=== PATIENT | female | born 1990 | race Hispanic/Latino ===

== ENCOUNTER 2025-03-09 15:07 | Inpatient (IN) | payer MEDICAID, SELFPAY ==
[2025-03-09] VITALS (92 sets, daily range): BP systolic 106–173; BP diastolic 55–85; PULSE 48–85; RESP 16; TEMP 36.4–37.5; O2SAT 81–100; BMI 34.0
--- NOTE | 2025-03-09 12:35 | OB.TRI.NOTE ---
HPI - General HPI Narrative CARLOS BANGURA, is a 34 F who presents from office for elevated blood pressure, headache, swelling and itching on hands and feet.
[2025-03-09] MEDS: LACTATED RINGERS 500 ML 999 ML IV (13:15)
[2025-03-09 13:25] LABS: Hematocrit 34.8 % (37-47); Hemoglobin 11.0 g/dL (12.0-15.0); Mean Corp Hgb Conc 31.6 g/dL (32-36); Mean Corpuscular Volume 79.8 fL (81-99); POSITIVE MORPHOLOGY YES; Platelet Count 120 K/mm3 (150-450); RBC Distribution Width CV 21.4 % (11.6-14.6); RBC Distribution Width SD 61.8 fl (35.1-43.9); Red Blood Count 4.36 M/mm3 (4.2-5.4); White Blood Count 4.7 K/mm3 (4.4-11.0)
[2025-03-09 13:26] LABS: Scan Indicated on CBC? Y/N YES- FLAGS NOTED
[2025-03-09 13:43] LABS: Differential Comment SCANNED
[2025-03-09 13:50] LABS: AST(SGOT) 32 U/L (<=31); Alanine Aminotransfer ALT/SGPT 19 U/L (<=34); Estimated Creatinine Clearance 126.86 ml/min (50-250); Uric Acid 5.7 mg/dL (2.6-6.0)
[2025-03-09 13:51] LABS: Creatinine, Urine (random) 51.40 mg/dL (28.00-217.00); Protein, Urine (Random) 39.8 mg/dL (0.0-12.0); Protein:Creat Ratio 774 mg/g CRE (0-200)
[2025-03-09] MEDS: Lactated Ringers 1,000 ML 100 ML IV (14:56)
[2025-03-09] MEDS: NIFEdipine 30 MG Tablet PO (15:21)
[2025-03-09 16:18] LABS: Syphilis Antibodies Nonreactive (Nonreactive)
--- NOTE | 2025-03-09 16:30 | NURSING ---
Interpretor ID [id number]
--- NOTE | 2025-03-09 18:13 | HP.PCM.OB_ITS ---
HPI - General General Date of Admission: 03/09/25 Date of Service: 03/09/25 Chief Complaint: HEADACHE HPI Narrative CARLOS LYNN, is a 34 F who presents from the office with complaining of generalized pruritus and a headache. She reports it was 7 out of 10. However after Tylenol and rest here she states that it is a 2 out of 10. She denies any gross vaginal bleeding or leaking of fluid. She has had good movement. is complicated to date by dichorionic diamniotic . Patient has a history of 1 previous full-term vaginal delivery without complication of a that was approximately 3.5 kg has also been complicated 8 by anemia she had an elevated 1 hour glucose tolerance test but had a normal 3-hour test. Maternal Data Information Final CRISTOPHER: [birth year] Gestational age: 35 3/7 [facility] Medical History (Updated 03/09/25 @ 18:[address] Analy Stark MD) Headache Pre-eclampsia Allergy/AdvReac Type Severity Reaction Status Date / Time No Known Allergies Allergy Verified 03/09/25 12:55 Social History Smoking Status: Never smoker History Elective abortions Hx Para 1 Spontaneous abortions Hx # Term Pregnancies Ectopic pregnancies Hx # Pregnancies Multiple births # of living children ROS Constitutional Constitutional: Denies fatigue, fever(s) or malaise ENT HEENT: Denies dizziness Cardiovascular Cardiovascular: Denies chest pain, dyspnea or lightheadedness Respiratory/Chest Respiratory/Chest: Denies cough or dyspnea Gastrointestinal Gastrointestinal: Denies change in bowel habits Genitourinary Genitourinary: Denies burning urination or genital lesions Integumentary Integumentary: Denies rash Neurologic Neurologic: Denies confusion, dizziness, headache(s), numbness or weakness Vital Signs Vital Signs Vital Signs: 03/09/25 12:49 03/09/25 12:49 03/09/25 12:50 Temperature Temperature Source Pulse Rate 56 L 51 L Respiratory Rate Blood Pressure 146/80 H BP Systolic 146 BP Diastolic 80 Pulse Ox 03/09/25 12:50 03/09/25 12:55 03/09/25 12:55 Temperature Temperature Source Pulse Rate 56 L Respiratory Rate Blood Pressure BP Systolic BP Diastolic Pulse Ox 100 100 03/09/25 13:00 03/09/25 13:00 03/09/25 13:05 Temperature Temperature Source Pulse Rate 55 L Respiratory Rate Blood Pressure 150/80 H BP Systolic 150 BP Diastolic 80 Pulse Ox 99 03/09/25 13:05 03/09/25 13:05 03/09/25 13:05 Temperature Temperature Source Pulse Rate 56 L 56 L Respiratory Rate Blood Pressure BP Systolic BP Diastolic Pulse Ox 100 03/09/25 13:10 03/09/25 13:10 03/09/25 13:15 Temperature Temperature Source Pulse Rate 54 L 52 L Respiratory Rate Blood Pressure BP Systolic BP Diastolic Pulse Ox 100 03/09/25 13:15 03/09/25 13:20 03/09/25 13:20 Temperature Temperature Source Pulse Rate 66 Respiratory Rate Blood Pressure BP Systolic BP Diastolic Pulse Ox 100 96 03/09/25 13:25 03/09/25 13:25 03/09/25 13:30 Temperature Temperature Source Pulse Rate 55 L 55 L Respiratory Rate Blood Pressure BP Systolic BP Diastolic Pulse Ox 99 03/09/25 13:30 03/09/25 13:35 03/09/25 13:35 Temperature Temperature Source Pulse Rate 55 L Respiratory Rate Blood Pressure 160/77 H BP Systolic 160 BP Diastolic 77 Pulse Ox 99 03/09/25 13:35 03/09/25 13:35 03/09/25 13:40 Temperature Temperature Source Pulse Rate 56 L 60 Respiratory Rate Blood Pressure BP Systolic BP Diastolic Pulse Ox 99 03/09/25 13:40 03/09/25 13:45 03/09/25 13:45 Temperature Temperature Source Pulse Rate 57 L Respiratory Rate Blood Pressure BP Systolic BP Diastolic Pulse Ox 100 100 03/09/25 13:50 03/09/25 13:50 03/09/25 13:50 Temperature Temperature Source Pulse Rate 56 L Respiratory Rate Blood Pressure 152/76 H BP Systolic 152 BP Diastolic 76 Pulse Ox 100 03/09/25 13:55 03/09/25 13:55 03/09/25 14:00 Temperature Temperature Source Pulse Rate 55 L 55 L Respiratory Rate Blood Pressure BP Systolic BP Diastolic Pulse Ox 100 03/09/25 14:00 03/09/25 14:04 03/09/25 14:04 Temperature Temperature Source Pulse Rate 54 L Respiratory Rate Blood Pressure 143/82 H BP Systolic 143 BP Diastolic 82 Pulse Ox 98 03/09/25 14:05 03/09/25 14:05 03/09/25 14:10 Temperature Temperature Source Pulse Rate 55 L 53 L Respiratory Rate Blood Pressure BP Systolic BP Diastolic Pulse Ox 100 03/09/25 14:10 03/09/25 14:15 03/09/25 14:15 Temperature Temperature Source Pulse Rate 50 L Respiratory Rate Blood Pressure BP Systolic BP Diastolic Pulse Ox 100 100 03/09/25 14:20 03/09/25 14:20 03/09/25 14:20 Temperature Temperature Source Pulse Rate 56 L Respiratory Rate Blood Pressure 160/79 H BP Systolic 160 BP Diastolic 79 Pulse Ox 100 03/09/25 14:25 03/09/25 14:25 03/09/25 14:30 Temperature Temperature Source Pulse Rate 55 L 54 L Respiratory Rate Blood Pressure BP Systolic BP Diastolic Pulse Ox 100 03/09/25 14:30 03/09/25 14:35 03/09/25 14:35 Temperature Temperature Source Pulse Rate 55 L Respiratory Rate Blood Pressure BP Systolic BP Diastolic Pulse Ox 99 97 03/09/25 14:36 03/09/25 14:36 03/09/25 14:40 Temperature Temperature Source Pulse Rate 53 L 55 L Respiratory Rate Blood Pressure 160/77 H BP Systolic 160 BP Diastolic 77 Pulse Ox 03/09/25 14:40 03/09/25 14:42 03/09/25 15:05 Temperature Temperature Source Pulse Rate Respiratory Rate Blood Pressure 162/77 H BP Systolic 162 BP Diastolic 77 Pulse Ox 100 81 03/09/25 15:05 03/09/25 15:20 03/09/25 15:20 Temperature Temperature Source Pulse Rate 48 L 55 L Respiratory Rate Blood Pressure 173/85 H BP Systolic 173 BP Diastolic 85 Pulse Ox 03/09/25 15:35 03/09/25 15:35 03/09/25 15:46 Temperature Temperature Source Pulse Rate 54 L Respiratory Rate Blood Pressure 172/85 H 106/55 L BP Systolic 172 106 BP Diastolic 85 55 Pulse Ox 03/09/25 15:46 03/09/25 16:07 03/09/25 16:07 Temperature Temperature Source Pulse Rate 85 71 Respiratory Rate Blood Pressure 114/80 BP Systolic 114 BP Diastolic 80 Pulse Ox 03/09/25 16:26 03/09/25 16:26 03/09/25 16:46 Temperature Temperature Source Pulse Rate 66 Respiratory Rate Blood Pressure 129/76 H 129/74 H BP Systolic 129 129 BP Diastolic 76 74 Pulse Ox 03/09/25 16:46 03/09/25 17:06 03/09/25 17:06 Temperature Temperature Source Pulse Rate 63 59 L Respiratory Rate Blood Pressure 140/76 H BP Systolic 140 BP Diastolic 76 Pulse Ox 03/09/25 17:27 03/09/25 17:27 03/09/25 17:46 Temperature Temperature Source Pulse Rate 63 Respiratory Rate Blood Pressure 157/78 H 151/79 H BP Systolic 157 151 BP Diastolic 78 79 Pulse Ox 03/09/25 17:46 03/09/25 18:06 03/09/25 18:06 Temperature Temperature Source Pulse Rate 56 L 62 Respiratory Rate Blood Pressure 132/66 H BP Systolic 132 BP Diastolic 66 Pulse Ox 03/09/25 18:10 03/09/25 18:10 03/09/25 18:10 Temperature 99.1 F Temperature Source Temporal Pulse Rate Respiratory Rate 16 Blood Pressure BP Systolic BP Diastolic Pulse Ox Weight Weight: 76.4 kg Body Mass Index (BMI) 34.0 Physical Exam Narrative 2+ LE EDEMA, 2+ DTRS, NO CLONUS CERVIX Const alert and no apparent distress General Appearance: cooperative HEENT normocephalic Resp normal respiratory effort Cardio regular rate GI soft to palpation GI Narrative: gravid, nontender, appropriate for gestational age Extremity no calf tenderness Skin no wounds Rashes: No rashes noted Psych activity/motor behavior normal Labs Labs Labs: Blood Type B POSITIVE Antibody Screen NEGATIVE Hct 34.8 % (37-47) L Hgb 11.0 g/dL (12.0-15.0) L Syphilis Total Ab Nonreactive (Nonreactive) Miscellaneous Test Pending Assessment & Plan (1) High risk multigravida in third trimester: (2) 35 weeks gestation of : PLAN: Special care nursery and pediatrics were made aware of patient's admission and plan for delivery. (3) Dichorionic diamniotic twin gestation: PLAN: vtx/transverse response and alternatives to induction of labor versus section were discussed with the patient her questions were answered to her satisfaction she desires to proceed with induction of labor. Encouraged epidural. Estimated weight is less than her previous delivery and pelvis clinically adequate to expect vaginal delivery. Will initiate Pitocin and use artificial rupture membranes as needed for induction of labor. May use routine pain control measures as needed for labor. Encouraged epidural. (4) Pre-eclampsia: PLAN: Patient had 1 severe range pressure, the other pressure was immediately after the antihypertensives were given. Blood pressure responded well to p.o. Procardia. Will continue to monitor blood pressures closely and medicate as needed. Headache has now improved. Will hold magnesium for now but if headache worsens or another severe range pressure would initiate magnesium prophylaxis and I reviewed risk benefits and alternatives of this with the patient. Her questions were answered to her satisfaction and she desires to proceed. Patient used her friend's an accounts receivable executive and declined interpreting services for now. Recheck preeclampsia labs 12 hrs after admission, plt 120 and uncertain if gest Htn or from preeclampsia.
[2025-03-09] MEDS: Oxytocin 15 Units/NS 250ml 15 UNITS/250 ML IV.SOLN 2 UNITS IV (19:17)
[2025-03-09] MEDS: Magnesium Sulfate 4gm/100mL 4 GM/100 ML IV.SOLN. IV (20:43)
--- NOTE | 2025-03-09 20:57 | PCM.PN.CNM ---
Subjective Subjective Contacted by nursing due to patient reporting that her headache has returned. She is also having blurry areas in vision. Objective Data Objective Data Vital Signs: Vital Signs Temp Pulse Resp BP Pulse Ox 98.3 F 67 16 143/80 H 97 03/09/25 19:36 03/09/25 20:49 03/09/25 19:36 03/09/25 20:43 03/09/25 20:49 Weight: 168 lb 6.931 oz Body Mass Index (BMI) 34.0 Intake & Output: Intake and Output for Last 24 Hours 03/07/25 03/08/25 03/09/25 23:59 23:59 23:59 Intake Total 671.40 / 671.40 Balance 671.40 / 671.40 Lab / Micro Data 03/09/25 12:15 03/09/25 12:15 Labs: Laboratory Results - last 24 hr 03/09/25 12:15: WBC 4.7, RBC 4.36, Hgb 11.0 L, Hct 34.8 L, MCV 79.8 L, MCH 25.2 L, MCHC 31.6 L, RDW Std Deviation 61.8 H, RDW Coeff of Rosalind 21.4 H, Plt Count 120 L, MPV TNP, Differential Comment SCANNED, Creatinine 0.56 L, Estim Creat Clear Calc 126.86, Est GFR (MDRD) Non-Af 121, Uric Acid 5.7, AST 32, ALT 19, U Random Total Protein 39.8 H, Urine Creatinine 51.40, Protein/Creatinin Ratio 774 H 03/09/25 13:15: Syphilis Total Ab Nonreactive, Blood Type B POSITIVE, Antibody Screen NEGATIVE Assessment & Plan (1) Pre-eclampsia: (2) Dichorionic diamniotic twin gestation: (3) 35 weeks gestation of : (4) High risk multigravida in third trimester: (5) Headache: (6) Visual changes: (7) Thrombocytopenia: PLAN: Plan Dr. Stark notified of headache with visual changes Orders received to start magnesium sulfate IV - 4 gm bolus now and to run at 2 gm / hour Continue to monitor blood pressures - no severe ranges Repeating platelet level at 2300 Continue Pitocin 4 mu/min IV and continue to increase per policy
[2025-03-09] MEDS: Magnesium Sulfate 20 GM/500 ML BAG IV (21:06)
[2025-03-09 23:22] LABS: Hematocrit 35.6 % (37-47); Hemoglobin 11.3 g/dL (12.0-15.0); Mean Corp Hgb Conc 31.7 g/dL (32-36); Mean Corpuscular Volume 79.8 fL (81-99); POSITIVE MORPHOLOGY YES; Platelet Count 121 K/mm3 (150-450); RBC Distribution Width CV 21.4 % (11.6-14.6); RBC Distribution Width SD 60.8 fl (35.1-43.9); Red Blood Count 4.46 M/mm3 (4.2-5.4); White Blood Count 5.8 K/mm3 (4.4-11.0)
[2025-03-09 23:48] LABS: Scan Indicated on CBC? Y/N YES- FLAGS NOTED
[2025-03-10] VITALS (176 sets, daily range): BP systolic 102–156; BP diastolic 63–92; PULSE 62–97; RESP 14–16; TEMP 36.1–37; O2SAT 86–100
[2025-03-10] MEDS: LACTATED RINGERS 500 ML 999 ML IV (01:08)
[2025-03-10] MEDS: fentaNYL-bupivacaine (epidural) 100 ML BAG EPIDURAL ×2 (02:07→10:39)
--- NOTE | 2025-03-10 03:22 | NURSING ---
Gil placed after epidural, pt is having twins and baby B is transverse.
[2025-03-10] MEDS: Lactated Ringers 1,000 ML 100 ML IV (05:00)
[2025-03-10] MEDS: Magnesium Sulfate 20 GM/500 ML BAG IV ×2 (06:11→16:11)
[2025-03-10] MEDS: 0.9% Saline Lock 10 ML Syringe IV ×3 (07:54→14:35)
[2025-03-10 08:33] LABS: Hematocrit 40.5 % (37-47); Hemoglobin 12.9 g/dL (12.0-15.0); Mean Corp Hgb Conc 31.9 g/dL (32-36); Mean Corpuscular Volume 79.7 fL (81-99); POSITIVE MORPHOLOGY YES; Platelet Count 125 K/mm3 (150-450); RBC Distribution Width CV 21.5 % (11.6-14.6); RBC Distribution Width SD 61.3 fl (35.1-43.9); Red Blood Count 5.08 M/mm3 (4.2-5.4); White Blood Count 7.2 K/mm3 (4.4-11.0)
[2025-03-10 08:57] LABS: AST(SGOT) 34 U/L (<=31); Alanine Aminotransfer ALT/SGPT 23 U/L (<=34); Albumin, Serum 3.1 g/dL (3.5-5.0); Alkaline Phosphatase 387 U/L (35-104); Anion Gap 15 (5-15); BUN 9 mg/dL (4-19); BUN/Creat Ratio 13.2 RATIO (10-20); Calcium,Total 8.0 mg/dL (7.6-11.0); Carbon Dioxide 17.7 mmol/L (21.0-32.0); Chloride 103 mmol/L (98-108); Estimated Creatinine Clearance 107.64 ml/min (50-250); Globulin 3.0 g/dL (2.2-4.2); Glucose 91 mg/dL (70-99); Potassium 3.8 mmol/L (3.3-5.1)
[2025-03-10 09:07] LABS: Prothrombin Time (Protime)PT. 12.4 SECONDS (11.7-14.9)
[2025-03-10 09:08] LABS: Partial Thromboplast Time 28.7 Seconds (24.1-36.2)
[2025-03-10 09:33] LABS: Scan Indicated on CBC? Y/N YES- FLAGS NOTED
[2025-03-10 09:34] LABS: Fibrinogen 475 mg/dl (203-444)
[2025-03-10] MEDS: Oxytocin 15 Units/NS 250ml 15 UNITS/250 ML IV.SOLN 334 UNITS IV (12:29)
[2025-03-10] MEDS: TRANEXAMIC ACID 1,000 MG in 0.9% Normal Saline (100mL Bag) 100 ML 440 MG IV (12:30)
[2025-03-10] MEDS: Oxytocin 15 Units/NS 250ml 15 UNITS/250 ML IV.SOLN 83 UNITS IV (13:05)
--- NOTE | 2025-03-10 13:13 | EX.PCM.OBVAG ---
Assessment & Plan (1) Dichorionic diamniotic twin gestation: (2) 35 weeks gestation of : (3) High risk multigravida in third trimester: (4) Pre-eclampsia: (5) Headache: (6) Visual changes: (7) Thrombocytopenia: Vaginal Delivery Maternal Presentation Maternal Presentation: Medically Indicated Induction Medical Reason for Induction: Preeclampsia, eclampsia Vaginal Delivery Information Procedure Performed: Spontaneous Vaginal Delivery Surgeon/Practitioner: Madeleine Medley Date of Procedure: 03/10/25 Pre-Procedure Diagnosis: 35 week gestation, twin gestation, pre eclampsia Post-Procedure Diagnosis: As above Type of anesthesia: Epidural Special Medications: None Estimated Blood Loss: 900 mL Findings Description of procedure: The patient was taken to the operating room when she was complete and +1 station. With pushing, head of baby A was delivered followed by the shoulders and body without any traction, force, or delay. A vigorous viable male infant was delivered and placed on maternal abdomen. The cord was clamped and cut after a 60 sec delay by the father the baby. Next a hand was inserted into the vagina to palpate a presenting part of baby B. One foot, one hand and the side of the head was palpated. Baby B was transverse back up. The hand reduced spontaneously. Was unable to reduce the foot to be able to perform an external cephalic version to bring the head into the pelvis, as the foot was passed the head and in the upper half of the vagina. Upon palpation I was unable to feel the second foot. Dr. Wolf then attempted to find the second foot, and was unable to do so. Dr. Stark then presented to the operating room and upon palpation was able to find the second foot and ruptured the patient upon doing so for clear fluid. The infant was delivered in footling breech presentation. The legs, buttocks, and body were delivered. With rotation the arms were delivered. The head was delivered with suprapubic pressure and was flexed during delivery. A viable male infant was delivered and the cord was clamped cut immediately and the infant was handed off to the waiting nursery staff. Baby A was delivered by Dr. Medley. Baby B was delivered by Dr. Stark. At this point myself performed fundal massage and the placentas were delivered spontaneously and noted to be intact. There was a true knot in the cord of baby A. The uterus was explored and cleared of clot and was noted to be boggy. Pitocin was running. Hemabate was given. Fundal massage was performed, and the uterus continued to be boggy. TXA was given and a Dana was placed intrauterine. The Dana was placed to suction, and bleeding improved. There was an anterior vaginal laceration that was briskly bleeding which was repaired using a 2-0 Vicryl using 3 [id number] stitches. A second-degree perineal laceration was repaired using 2-0 Vicryl and 3-0 Vicryl in usual fashion. A bedside transabdominal ultrasound was performed confirming intrauterine placement of the Lindsey. Bleeding was minimal. Procedure findings: Baby A vertex with true knot in cord Baby B footling breech Normal placentas Presentation: Vertex Amniotic Membrane Rupture Type: Artificial Amniotic Fluid Description: Clear Placental Delivery Description: Spontaneous Cord Entanglement: True Knot(s) Nuchal Cord Compression: Without compression Cord Gases: ABG and VBG Infant A Gender: Male Delayed Cord Clamping: Yes Silvering Department Supervisor vice president and portfolio manager: Yes Stripping And Booking Machine Operator: Hailey Lainez Tasks completed by corporate legal assistant: Other (ultrasound, vaginal exam) Additional bookkeeper assistant?: Yes Additional Lymphedema Therapist #2: Analy Stark Tasks completed by bookkeeper assistant #2: Other (delivery of baby B) Post Vaginal Deli Medications given after delivery: IV Pitocin and IM Hemabate Episiotomy Description: None Laceration: 2nd degree Complication Complications: No Baby B Information Presentation: Footling Breech Operative Information Mode of Delivery: Vaginal Cord Entanglement: None Cord Gases: ABG and VBG Infant B gender: Male Delayed Cord Clamping: No
--- NOTE | 2025-03-10 13:47 | NURSING ---
60CC STERILE FLUID REMOVED FROM FIFI AND SUCTION DISCONNECTED AT THIS TIME PER POLICY TO OBSERVE BLEEDING FOR 30MIN.
[2025-03-10 15:29] LABS: Hematocrit 31.5 % (37-47); Hemoglobin 10.1 g/dL (12.0-15.0); Mean Corp Hgb Conc 32.1 g/dL (32-36); Mean Corpuscular Volume 79.7 fL (81-99); POSITIVE MORPHOLOGY YES; Platelet Count 145 K/mm3 (150-450); RBC Distribution Width CV 21.2 % (11.6-14.6); RBC Distribution Width SD 60.8 fl (35.1-43.9); Red Blood Count 3.95 M/mm3 (4.2-5.4); White Blood Count 15.7 K/mm3 (4.4-11.0)
--- NOTE | 2025-03-10 16:15 | NURSING ---
Epidural catheter removed at this time per policy with blue tip intant. FIFI also removed per Dr Medley request without difficulty. Patient tolerated removal without complaint of discomfort. Bleeding appropriate fundal height at level of umbilicus, midline, firm.
[2025-03-10 19:09] LABS: Hematocrit 24.9 % (37-47); Hemoglobin 8.1 g/dL (12.0-15.0); Immature Granulocytes Count 0.110 X10^3/uL (0.0-0.0); Mean Corp Hgb Conc 32.5 g/dL (32-36); Mean Corpuscular Volume 79.8 fL (81-99); NRBC Flagged by Analyzer 0 % (0-5); POSITIVE MORPHOLOGY YES; Platelet Count 125 K/mm3 (150-450); RBC Distribution Width CV 21.2 % (11.6-14.6); RBC Distribution Width SD 60.2 fl (35.1-43.9); Red Blood Count 3.12 M/mm3 (4.2-5.4); White Blood Count 15.4 K/mm3 (4.4-11.0)
[2025-03-10 19:47] LABS: Differential Indicated SCAN CRITERIA MET
[2025-03-10 20:33] LABS: Scan Indicated on CBC? Y/N YES- FLAGS NOTED
[2025-03-10] MEDS: Lactated Ringers 1,000 ML 30 ML IV (20:50)
--- NOTE | 2025-03-10 21:39 | NURSING ---
Due to PRBC transfusion, Vitals documented for this hour under TAR
[2025-03-10 21:48] LABS: Differential Comment SCANNED
[2025-03-10 21:51] LABS: Anisocytosis 2+; Burr Cells 1+; Polychromasia 1+
[2025-03-11] VITALS (13 sets, daily range): BP systolic 112–131; BP diastolic 70–86; PULSE 75–85; RESP 16–18; TEMP 36.2–36.9; O2SAT 95–100
--- NOTE | 2025-03-11 00:01 | NURSING ---
vitals still in TAR for transfusion
[2025-03-11] MEDS: Magnesium Sulfate 20 GM/500 ML BAG IV (02:31)
[2025-03-11 06:56] LABS: Hematocrit 26.0 % (37-47); Hemoglobin 8.7 g/dL (12.0-15.0); Mean Corp Hgb Conc 33.5 g/dL (32-36); Mean Corpuscular Volume 81.5 fL (81-99); POSITIVE MORPHOLOGY YES; Platelet Count 121 K/mm3 (150-450); RBC Distribution Width CV 21.7 % (11.6-14.6); RBC Distribution Width SD 63.8 fl (35.1-43.9); Red Blood Count 3.19 M/mm3 (4.2-5.4); White Blood Count 14.6 K/mm3 (4.4-11.0)
[2025-03-11 06:58] LABS: Scan Indicated on CBC? Y/N YES- FLAGS NOTED
[2025-03-11 07:20] LABS: AST(SGOT) 32 U/L (<=31); Alanine Aminotransfer ALT/SGPT 16 U/L (<=34); Albumin, Serum 2.3 g/dL (3.5-5.0); Alkaline Phosphatase 243 U/L (35-104); Anion Gap 9 (5-15); BUN 8 mg/dL (4-19); BUN/Creat Ratio 12.3 RATIO (10-20); Calcium,Total 6.8 mg/dL (7.6-11.0); Carbon Dioxide 20.0 mmol/L (21.0-32.0); Chloride 103 mmol/L (98-108); Estimated Creatinine Clearance 107.64 ml/min (50-250); Globulin 1.9 g/dL (2.2-4.2); Glucose 85 mg/dL (70-99); Potassium 4.2 mmol/L (3.3-5.1)
[2025-03-11 07:28] LABS: Differential Comment SCANNED
--- NOTE | 2025-03-11 08:41 | PCM.PROGNOTE ---
Subjective Subjective patient seen at bedside, doing well. Patient reports good pain control. lochia mild. pt does reports has some muffling of ears and headache. reports urinating w/o concerns. Objective Data Objective Data Vital Signs: Vital Signs Temp Pulse Resp BP Pulse Ox O2 Del Method 97.7 F L 83 16 128/86 H 99 Room Air 03/11/25 06:23 03/11/25 06:23 03/11/25 06:23 03/11/25 06:23 03/11/25 06:23 03/11/25 06:23 Oxygen Delivery Method Room Air Weight: 76.4 kg Body Mass Index (BMI) 34.0 Intake & Output: Intake and Output for Last 24 Hours 03/09/25 03/10/25 03/11/25 23:59 23:59 23:59 Intake Total 783.27 / 783.27 4825.17 / 4825.17 1080 / 1080 Output Total 200 / 200 3040 / 3040 530 / 530 Balance 583.27 / 583.27 1785.17 / 1785.17 550 / 550 Lab / Micro Data 03/11/25 06:29 03/11/25 06:29 Labs: Laboratory Results - last 24 hr 03/10/25 08:07: PT 12.4, INR 0.9, APTT 28.7, Fibrinogen 475 H, Sodium 136, Potassium 3.8, Chloride 103, Carbon Dioxide 17.7 L, Anion Gap 15, BUN 9, Creatinine 0.66 L, Estim Creat Clear Calc 107.64, Est GFR (MDRD) Non-Af 116, BUN/Creatinine Ratio 13.2, Glucose 91, Calcium 8.0, Total Bilirubin 0.70, AST 34 H, ALT 23, Alkaline Phosphatase 387 H, Total Protein 6.1, Albumin 3.1 L, Globulin 3.0, Albumin/Globulin Ratio 1.0 03/10/25 13:15: Crossmatch See Detail 03/10/25 14:35: WBC 15.7 H, RBC 3.95 L, Hgb 10.1 L, Hct 31.5 L, MCV 79.7 L, MCH 25.6 L, MCHC 32.1, RDW Std Deviation 60.8 H, RDW Coeff of Rosalind 21.2 H, Plt Count 145 L, MPV TNP 03/10/25 18:55: WBC 15.4 H, RBC 3.12 L, Hgb 8.1 L, Hct 24.9 L, MCV 79.8 L, MCH 26.0 L, MCHC 32.5, RDW Std Deviation 60.2 H, RDW Coeff of Rosalind 21.2 H, Plt Count 125 L, MPV TNP, Immature Gran % (Auto) 0.700, Neut % (Auto) 87.2 H, Lymph % (Auto) 6.9 L, Rhea % (Auto) 5.1, Eos % (Auto) 0.0, Baso % (Auto) 0.1, Absolute Neuts (auto) 13.4 H, Absolute Lymphs (auto) 1.06, Nucleated RBC % 0, Differential Comment SCANNED, Platelet Estimate SLT DEC, Polychromasia 1+, Anisocytosis 2+, [place] Cells 1+ 03/11/25 06:29: WBC 14.6 H, RBC 3.19 L, Hgb 8.7 L, Hct 26.0 L, MCV 81.5, MCH 27.3, MCHC 33.5, RDW Std Deviation 63.8 H, RDW Coeff of Rosalind 21.7 H, Plt Count 121 L, MPV TNP, Differential Comment SCANNED, Sodium 132 L, Potassium 4.2, Chloride 103, Carbon Dioxide 20.0 L, Anion Gap 9, BUN 8, Creatinine 0.66 L, Estim Creat Clear Calc 107.64, Est GFR (MDRD) Non-Af 116, BUN/Creatinine Ratio 12.3, Glucose 85, Calcium 6.8 L, Total Bilirubin 0.56, AST 32, ALT 16, Alkaline Phosphatase 243 H, Total Protein 4.2 L, Albumin 2.3 L, Globulin 1.9 L, Albumin/Globulin Ratio 1.2 Physical Exam Narrative Abd: fundus firm. Vaginal exam: no induration, sutures intact. No signifcant swelling no signs of hematoma Const alert and oriented x3 General Appearance: cooperative HEENT normocephalic Neck General: normal visual inspection GI soft to palpation and non-distended GI Narrative: Fundus firm Extremity normal to inspection and no calf tenderness Skin no rashes or lesions noted Neuro oriented x3 and CN's II-XII intact bilaterally Psych mental status grossly normal Assessment & Plan Assessment/Plan (1) Thrombocytopenia: (2) Headache: (3) Pre-eclampsia: (4) Dichorionic diamniotic twin gestation: (5) Vaginal delivery: (6) Acute on chronic anemia: PLAN: Plan PPD# 1 s/p 1 unit PRBC Routine care pain mgmt ambulation decrease magnesium to 1g/hr then stop around 1pm (24hr post delivery) check magnesium level (toxicity unlikely but due to symptoms will assess) Monitor VS Nexplanon insertion before discharge home
[2025-03-11 11:01] LABS: Magnesium 6.9 mg/dL (1.5-2.2)
--- NOTE | 2025-03-11 15:02 | CASEMGMT ---
Social Work Assessment Labor and Delivery Unit Patient Address: [address] [place] [address]. [place] [address] Phone number: [phone] Date of Referral: 03/09/25 Time of Referral:? 1624 Referred By: Dr. Stark Date of Intervention: ??03/11/25 Time of Intervention:? 141 Reason for Referral:? father of patient has history with alcohol Sw completed chart review and acknowledges social work consult. Sw presented to bedside and using iPad retail brand ambassador #[id number] sw introduced self to mother of baby (MOB- Deepthi) and father of baby (FOB- João). Sw explained reason for sw involvement and completed psychosocial assessment. History obtained from: medical records, MOB and FOB Household composition: Currently residing in the family home is LUZ ARGUETA, their 9 year old son, Daniel and twins when ready for discharge. MOB denies any problems or concerns with housing. Patient's parent/guardian status:? FOPercy states that he and MOB have been in a relationship with each other for 9 years. Parents state that they grew up in the same town in [place]. They moved to the [place] 1[place]5 years ago. [place] twins are second and third child for parents together. No concerns reported of domestic violence or intimate partner violence. Medical History: ?ELLIE is 34 year old female who is 2, para1- now 3 following labor and delivery of twins. ELLIE received routine care during with [facility]. ELLIE presented to hospital and delivered babys following induction of labor due to pre-eclampsia on 03/10/25 at 35 weeks gestation. Baby A: Enrique, was born vaginally and weighed 4lb 13oz with apgars of 8 and 9 at one and five minutes of life. Baby B: Rosendo, was born breech, and weighed 5lb 8oz and had apgars of 1, 6 and 8 at one, five and ten minutes of life respectfully. MOB was observed bottle feeding the twins. Kait was informed by bedside RN that parents have not chosen a pi/senior research associate for the twins, and told nurse that their son sees a doctor in [place]. While meeting with parents, sw explained the importance of the twins meeting with a pi/senior research associate regularly to ensure that they are growing and meeting developmental milestones on time, especially since they were born prematurely. Sw explained that a pi/senior research associate will monitor their growth and weight and administer vaccinations if parents are choosing to vaccinate their children. Kait informed parents of local pi/senior research associate options. Parents stated that they wanted to chose a pi/senior research associate at [facility]. Kait informed bedside RN that they want to schedule with [facility] when ready for discharge. Educational Status:? Parents obtaine their general education in [place]. Financial Status: LUZ is employed outside of the home working for [employer] in [place]. Infant Supplies:??Parents report that they have obtained all necessary baby items: two car seats, two safe sleep spaces, clothes, diapers and wipes Childcare/Caregiver(s):?MOB does not work outside of the home and will be the primary caregiver to baby's Transportation:?FOB states that they have reliable means of transportation, and that transportation is not a barrier to get anywhere they need to go. Programs/Agencies Involved: Parents met with Teresa from [employer] who will get the twins connected to Medicaid insurance. Kait explained that Medicaid will not go away for the twins and that it will cover all of their medical bills, including their pi/senior research associate appointments. Parents are not connected to any other community resources because they are not legal immigrants. - Kait provided parents information on [employer] which is a resource available to them in [place] which helps illegal immigrants with any needs that they may have. ? Children Services/Legal Issues:???No history of children services involvement. No issues or concerns warranting referral to be made at this time. Behavioral Health Issues: ??Mental Health History:?Parents deny mental health history. ?? Substance Use History:?Parents deny substance use prior to and during . ? Family History:ELLIE disclosed that there is substance abuse history with her family. Kait explained the importance of using healthy and safe coping skills opposed to seeking comfort from drugs or alcohol due to her family history. MOB expressed understanding. ? Drug Screens: ??No drug screens observed while completing chart review. Family/Social Stressors:? Parents deny any problems, concerns or stressors at this time. Support Systems: ELLIE states that her brother who lives close is a support person along with LUZ. Depression/Shaken Baby/Safe Sleeping:? Kait educated parents on signs and symptoms of baby blues and depression to be on the lookout for during this period. MOB states that she is aware of symptoms and did not experience any following her first baby. FOB states that if MOB were to experience symptoms he would recognize a change in her. Sw educated parents on shaken baby prevention and ABCs of safe sleep. Parents express understanding. ASSESSMENT:? MOB and baby's admitted following labor and delivery. Parents are paraguayan speaking but were observed to appear welcoming to meet with sw. Assessment completed and resources provided to parents. Education provided regarding Help Me [employer], [employer], and encouragement to choose a pi/senior research associate. MOB was laying in bed comfortably and FOB was standing in room taking turns feeding each baby and burping them. FOB handled each baby lovingly and provided appropriate hands on care. Parents asked appropriate questions. PLAN:? No other services requested or indicated. MOB and baby to be discharged when medically ready. Parents were provided literature regarding: signs and symptoms of baby blues and mood and anxiety disorders, Help Me Grow, shaken baby prevention, ABCs of safe sleep and a list of county resources that are available for them should any needs present themselves. [place], CONTINUOUS CONVEYOR SCREEN DRIER, SUPERVISOR [employer]
--- NOTE | 2025-03-11 16:40 | PCM.OPRPT ---
Operative Report (Standard) Operative Information Date of Procedure: 03/11/25 Pre-Operative Diagnosis: contraception management Post-Operative Diagnosis: same Surgery/Procedure Performed: Nexplanon insertion aeronautical research engineer: No Type of Anesthesia: Local Procedure Start Time: 16:50 Procedure Stop Time: 16:53 Select all DRAINS/GRAFTS/IMPLANTS that apply: Implanted device Implanted device details: Nexplanon Estimated Blood Loss: 0 Specimen collected: No Description of surgery: science interpreter service used to explain procedure and obtain consent. Left arm bent and area cleaned with betadine. 3cc of 1% lidocaine injected and Nexplanon placed about 10cm from medial epicondyle - placed superficially without difficulty. Steri strip applied. dry pressure dressing placed and patient tolerated well. excellent hemostasis Surgical Findings: nexplanon placed left arm Complications Complications: No
[2025-03-11] MEDS: 0.9% Saline Lock 10 ML Syringe IV (16:52)
[2025-03-12 02:50] VITALS: BP 116/72; PULSE 79; RESP 16; TEMP 36.8; O2SAT 98
--- NOTE | 2025-03-12 05:17 | DCINST_ITS ---
Discharge Instructions DC O2, CPAP, BIPAP needs Home O2 Discharge instructions: No Dressing / Incision May resume sexual activity in: 6-8 weeks Dressing / Incision Call your doctor if you observe: Fever of 101 or Higher, Inability to urinate, Using more than 1 pad per hour and Uncontrolled pain Follow Up Care Please Follow Up With: júnior When: You need to be seen in the office in 48-72hrs for BP check and then at 6 weeks for visit. please call [phone] Test Results: Test results from this visit will be discussed in further detail at your follow- up appointment, if applicable. Discharge Plan Admission Admit Date/Time: 03/09/25 15:07 Attending Provider: Madeleine Medley Primary Care Provider: Care PhysicianAmna Primary Discharge Orders/Prescriptions Prescriptions: New acetaminophen 500 mg Tablet 1,000 mg PO Q6H PRN PRN (Reason: Pain 1-10 Or Fever) Qty: 0 0RF ibuprofen 600 mg Tablet 600 mg PO Q6H PRN PRN (Reason: Pain Score 1-10) Qty: 0 0RF ferrous sulfate 325 mg (65 mg iron) tablet 325 mg PO DAILY Qty: 30 1RF Continued PNV cmb#95-ferrous fumarate-FA [ Multivitamins] 28 mg iron- 800 mcg tablet 1 tab PO DAILY Discontinued aspirin 81 mg capsule 81 mg PO DAILY Referrals / Follow Up: Care Physician,Amna Primary [Primary Care Provider] - Disposition Disposition (needs filled in before D/C Order can be placed): Home, Self Care
--- NOTE | 2025-03-12 05:28 | PCM.PROGNOTE ---
Subjective Subjective patient seen at bedside, doing well. Patient reports good pain control. lochia mild. denies JHAVERI or visual changes. Objective Data Objective Data Vital Signs: Vital Signs Temp Pulse Resp BP Pulse Ox O2 Del Method 98.2 F 79 16 116/72 98 Room Air 03/12/25 02:50 03/12/25 02:50 03/12/25 02:50 03/12/25 02:50 03/12/25 02:50 03/12/25 02:50 Oxygen Delivery Method Room Air Weight: 76.4 kg Body Mass Index (BMI) 34.0 Intake & Output: Intake and Output for Last 24 Hours 03/10/25 03/11/25 03/12/25 23:59 23:59 23:59 Intake Total 4825.17 / 4825.17 2481.67 / 2481.67 Output Total 3040 / 3040 1430 / 1430 Balance 1785.17 / 1785.17 1051.67 / 1051.67 Lab / Micro Data 03/11/25 06:29 03/11/25 06:29 Labs: Laboratory Results - last 24 hr 03/11/25 06:29: WBC 14.6 H, RBC 3.19 L, Hgb 8.7 L, Hct 26.0 L, MCV 81.5, MCH 27.3, MCHC 33.5, RDW Std Deviation 63.8 H, RDW Coeff of Rosalind 21.7 H, Plt Count 121 L, MPV TNP, Differential Comment SCANNED, Sodium 132 L, Potassium 4.2, Chloride 103, Carbon Dioxide 20.0 L, Anion Gap 9, BUN 8, Creatinine 0.66 L, Estim Creat Clear Calc 107.64, Est GFR (MDRD) Non-Af 116, BUN/Creatinine Ratio 12.3, Glucose 85, Calcium 6.8 L, Total Bilirubin 0.56, AST 32, ALT 16, Alkaline Phosphatase 243 H, Total Protein 4.2 L, Albumin 2.3 L, Globulin 1.9 L, Albumin/Globulin Ratio 1.2 03/11/25 09:45: Magnesium 6.9 H* Physical Exam Narrative Abd: fundus firm. Const alert and oriented x3 General Appearance: cooperative HEENT normocephalic Neck General: normal visual inspection GI soft to palpation and non-distended GI Narrative: Fundus firm Extremity normal to inspection and no calf tenderness Skin no rashes or lesions noted Neuro oriented x3 and CN's II-XII intact bilaterally Psych mental status grossly normal Assessment & Plan Assessment/Plan (1) Acute on chronic anemia: (2) Vaginal delivery: (3) Thrombocytopenia: (4) Pre-eclampsia: PLAN: Plan PPD#2 , Doing well Routine care pain mgmt ambulation BPs stable plan for dc home follow up in office friday or friday (48-72hrs) for bp check Start PO iron time spent with patient face to face on day of discharge was <30min
[2025-03-12 08:30] VITALS: BP 128/71; PULSE 73; RESP 16; TEMP 36.6; O2SAT 97
[2025-03-12 10:56] LABS: Hematocrit 21.7 % (37-47); Hemoglobin 7.2 g/dL (12.0-15.0); Mean Corp Hgb Conc 33.2 g/dL (32-36); Mean Corpuscular Volume 83.5 fL (81-99); Mean Platelet Vol. 11.7 fl (6.2-12.0); POSITIVE MORPHOLOGY YES; Platelet Count 128 K/mm3 (150-450); RBC Distribution Width CV 22.5 % (11.6-14.6); RBC Distribution Width SD 66.9 fl (35.1-43.9); Red Blood Count 2.60 M/mm3 (4.2-5.4); White Blood Count 12.2 K/mm3 (4.4-11.0)
[2025-03-12 10:57] LABS: Scan Indicated on CBC? Y/N YES- FLAGS NOTED
[2025-03-12 13:00] VITALS: BP 125/86; PULSE 78; RESP 16; TEMP 36.4; O2SAT 98
--- NOTE | 2025-03-16 18:07 | NURSING ---
Here for visit, follow up phone call questions asked with help of park interpreter (Alanis). Patient states she is feeling good, only c/o is regarding hemorrhoids. Instructed patient that she could continue using tucks pads as she did here in hospital. Denies any headaches, visual changes, baby blues, or flu like symptoms. States her bleeding is getting better. See notes for feedings. Denies any questions or concerns at this time.
--- NOTE | 2025-03-17 12:40 | PCM.DC.SUM ---
Providers Date of Admission: 03/09/25 Date of Discharge: 03/12/25 Primary Care Physician: Amna Primary Care Phys Reason For Visit: LABOR AND DELIVERY/VAGINAL DELIVERY [facility] Diagnosis Discharge Diagnosis (1) Acute on chronic anemia: Status: Chronic Code(s): D64.9 - Anemia, unspecified (2) Vaginal delivery: Status: Acute Code(s): O80 - Encounter for full-term uncomplicated delivery (3) Thrombocytopenia: Status: Acute Code(s): D69.6 - Thrombocytopenia, unspecified (4) Pre-eclampsia: Status: Acute Code(s): O14.90 - Unspecified pre-eclampsia, unspecified trimester Medications at Discharge Home Medications vit no.95-ferrous fumarate 28 mg-folic acid 800 mcg tablet ( Multivitamins) 1 tab PO DAILY 03/09/25 acetaminophen 500 mg tablet 1,000 mg (2 x 500 mg) PO Q6H PRN PRN Pain 1-10 Or Fever #0 tabs 03/12/25 ferrous sulfate 325 mg (65 mg iron) tablet 325 mg PO DAILY #30 tabs 03/12/25 ibuprofen 600 mg tablet 600 mg PO Q6H PRN PRN Pain Score 1-10 #0 tabs 03/12/25 Hospital Course Operations None Procedures - (vaginal delivery) Summary of Care Provided Minutes Spent on Discharge: 10 Hospital Course: The patient had an induction of labor at 35 week gestation for pre eclampsia with severe features and twin . She had a vaginal delivery. See delivery report for details. She had an immediate hemorrhage requiring 1 unit PRBC's, medication and an interuterine Dana device. She was on magnesium for seizure propylaxis. She was discharged home in good condition with oral iron and stable blood pressures. Weight / BMI Weight Weight: 168 lb 6.931 oz Body Mass Index (BMI) 34.0 ABG / Lab / Microbiology Data 03/12/25 10:47 03/11/25 06:29 D/C Instructions May resume sexual activity in: 6-8 weeks Call your doctor if you observe: Fever of 101 or Higher, Inability to urinate, Using more than 1 pad per hour and Uncontrolled pain DC O2, CPAP, BIPAP Needs Home O2 Discharge instructions: No Please Follow Up With: júnior When: You need to be seen in the office in 48-72hrs for BP check and then at 6 weeks for visit. please call [phone] Meaningful Use Info Meaningful Use Meaningful Use Diagnoses (Choose all that apply): None applicable Discharge Plan Admission Admit Date/Time: 03/09/25 15:07 Attending Provider: Madeleine Medley Primary Care Provider: Care Physician,Amna Primary Discharge Orders/Prescriptions Prescriptions: New acetaminophen 500 mg Tablet 1,000 mg PO Q6H PRN PRN (Reason: Pain 1-10 Or Fever) Qty: 0 0RF ibuprofen 600 mg Tablet 600 mg PO Q6H PRN PRN (Reason: Pain Score 1-10) Qty: 0 0RF ferrous sulfate 325 mg (65 mg iron) tablet 325 mg PO DAILY Qty: 30 1RF Continued PNV cmb#95-ferrous fumarate-FA [ Multivitamins] 28 mg iron- 800 mcg tablet 1 tab PO DAILY Discontinued aspirin 81 mg capsule 81 mg PO DAILY Referrals / Follow Up: Care Physician,No Primary [Primary Care Provider] - Disposition Disposition (needs filled in before D/C Order can be placed): Home, Self Care
== END 2025-03-12 13:55 | disposition home or self-care (01) | DRG 560 ==
LOC: WPOUT 15:26 → WP 15:34
PROVIDERS: Advanced Practice Midwife; Obstetrics & Gynecology; Admitting Provider Obstetrics & Gynecology; Referring Provider Obstetrics & Gynecology; Visit Provider Obstetrics & Gynecology
DX: O14.14 Severe pre-eclampsia complicating childbirth (principal); Z37.2 Twins, both liveborn; D69.6 Thrombocytopenia, unspecified; O99.12 Other diseases of the blood and blood-forming organs and certain disorders involving the immune mechanism complicating childbirth; O72.1 Other immediate postpartum hemorrhage; O14.94 Unspecified pre-eclampsia, complicating childbirth; D64.9 Anemia, unspecified; O30.043 Twin pregnancy, dichorionic/diamniotic, third trimester; Z3A.35 35 weeks gestation of pregnancy; O99.02 Anemia complicating childbirth; O69.2XX1 Labor and delivery complicated by other cord entanglement, with compression, fetus 1; O32.8XX2 Maternal care for other malpresentation of fetus, fetus 2; O70.1 Second degree perineal laceration during delivery
CPT/HCPCS: 36415; 59025; 59050; 80053; 82565; 82570; 83735; 84156; 84450; 84460; 84550; 85025; 85027; 85384; 85610; 85730; 86780; 86850; 86900; 86901; 86920; 99221; P9016; A4216; G0378; J2405